=== PATIENT | male | born 1960 | race Caucasian/White ===

== ENCOUNTER 2018-02-25 09:55 | Day surgery (SDC) | payer OTHER ==
[2018-02-24 09:16] VITALS: BMI 32.0
[2018-02-25 10:53] VITALS: TEMP 98
[2018-02-25] MEDS ORDERED: LIDOCAINE 1% 20 ML VIAL (10MG/ML) FOR IV START INTRADERMA ONE (11:00)
[2018-02-25] MEDS ORDERED: LACTATED RINGERS 1,000 ML IV ONE (11:06)
[2018-02-25] MEDS ORDERED: PROPOFOL 10 MG/ML 20 ML VIAL IV ONE (11:31)
[2018-02-25 12:06] VITALS: RESP 16
--- NOTE | 2018-02-25 12:10 | P.PCN ---
Date of Procedure: 02/25/18 Procedure(s) Performed: Procedure: Colonoscopy and polypectomy. Preoperative diagnosis: Screening for neoplasia. Postoperative diagnosis: 1. Small splenic flexure polyp snared but no large polyps or cancer. 2. Sigmoid diverticulosis with no evidence of acute diverticulitis or strictures. Preparation: HalfLytely prep. Sedation: Was provided by anesthesia. Brief clinical history: The patient is a 57-year-old male who is scheduled for this evaluation for screening for neoplasia age being his risk factor. There is no family history of colon cancer. The patient has no abdominal complaints, bleeding or anemia. This would be his first colonoscopy. Procedure: With the patient on his left lateral decubitus position and after informed consent and adequate sedation, the perianal area was inspected and it did not show any fissures or fistulas. There were no masses felt on digital rectal examination. The Olympus CFH 190L video colonoscope was then inserted in the rectum in the usual fashion and advanced to the cecum. There was a small polyp around the splenic flexure which was snared and retrieved by suction but there were no large polyps or cancer. Several diverticular orifices were seen scattered in the sigmoid but there was no evidence of acute diverticulitis or strictures. I retroflexed the endoscope in the rectum before the endoscope was withdrawn. Low-grade internal hemorrhoids were noted with no evidence of bleeding. The patient tolerated the procedure well. Plan: The patient was reassured. Discussed dietary measures. He will follow up with you as planned and I recommended repeat exam in 5 years.
[2018-02-25 12:26] VITALS: BP 133/85; PULSE 71
== END 2018-02-25 12:55 | disposition home or self-care (01) ==
LOC: ORWHC2ENDO 09:55
DX: Z12.11 Encounter for screening for malignant neoplasm of colon (principal); K63.5 Polyp of colon; K57.30 Diverticulosis of large intestine without perforation or abscess without bleeding; K64.8 Other hemorrhoids; F17.210 Nicotine dependence, cigarettes, uncomplicated; E66.01 Morbid (severe) obesity due to excess calories; Z68.32 Body mass index [BMI] 32.0-32.9, adult
CPT/HCPCS: 45385; 88305

== ENCOUNTER 2018-05-05 09:11 | Emergency (ER) | payer OTHER ==
[2018-05-05 09:17] VITALS: BP 91/60; PULSE 69; RESP 18; TEMP 98.2
[2018-05-05] MEDS ORDERED: LIDOCAINE 1% INJ 10MG/ML (20 ML MDV) SQ ONE (09:28)
--- NOTE | 2018-05-05 09:30 | ED ---
Wound/Laceration HPI - General Chief Complaint: Wound/Laceration Stated Complaint: Laceraton hand Time Seen by Provider: 05/05/18 09:18 Source: patient, RN notes reviewed, old records reviewed Mode of arrival: ambulatory Limitations: no limitations - History of Present Illness Initial Comments: Patient is a 57-year-old male presents emergency department today with laceration over the proximal interphalangeal joint of the left index finger. Patient reports that he cut it on a razor blade at work. He states he has full range of motion of finger. His tetanus is up-to-date. Patient denies any recent fever, chills, shortness of breath, chest pain, back pain, abdominal pain , nausea vomiting, numbness or tingling, dysuria or hematuria, constipation or diarrhea, headaches or visual changes, or any other current symptoms - Related Data Home Medications Medication Instructions Recorded Confirmed No Known Home Medications 02/24/18 02/25/18 Allergies Allergy/AdvReac Type Severity Reaction Status Date / Time No Known Allergies Allergy Verified 05/05/18 09:28 Review of Systems ROS Statement: Those systems with pertinent positive or pertinent negative responses have been documented in the HPI. ROS Other: All systems not noted in ROS Statement are negative. Past Medical History Past Medical History: No Reported History History of Any Multi-Drug Resistant Organisms: None Reported Past Surgical History: Orthopedic Surgery Additional Past Surgical History / Comment(s): knee arthroscopy Past Anesthesia/Blood Transfusion Reactions: Previous Problems w/ Anesthesia Additional Past Anesthesia/Blood Transfusion Reaction / Comment(s): states "longer to wake up" Past Psychological History: No Psychological Hx Reported Smoking Status: Current every day smoker Past Alcohol Use History: Occasional Past Drug Use History: None Reported - Past Family History Father Family Medical History: Cancer Additional Family Medical History / Comment(s): prostate General Exam - General Exam Comments Initial Comments: This is a 57-year-old male. Alert and oriented 3. No significant distress. Limitations: no limitations General appearance: alert, in no apparent distress Head exam: Present: atraumatic, normocephalic, normal inspection Eye exam: Present: normal appearance, PERRL, EOMI. Absent: scleral icterus, conjunctival injection, periorbital swelling ENT exam: Present: normal exam, mucous membranes moist Neck exam: Present: normal inspection. Absent: tenderness, meningismus, lymphadenopathy Respiratory exam: Present: normal lung sounds bilaterally. Absent: respiratory distress, wheezes, rales, rhonchi, stridor Cardiovascular Exam: Present: regular rate, normal rhythm, normal heart sounds. Absent: systolic murmur, diastolic murmur, rubs, gallop, clicks GI/Abdominal exam: Present: soft, normal bowel sounds. Absent: distended, tenderness, guarding, rebound, rigid Extremities exam: Present: normal inspection, full ROM, normal capillary refill. Absent: tenderness, pedal edema, joint swelling, calf tenderness Left Elbow exam: Present: normal inspection, full ROM, abrasion Forearm Wrist exam: Present: full ROM Hand Wrist exam: Present: normal inspection, full ROM, laceration ( is a 2 cm laceration over the PIP of the left index finger. Laceration is linear.) Neuro motor exam: Present: wrist extension intact, thumb opposition intact Neurosensory exam: Present: 2-point discrimination Vascular: Present: normal capillary refill Back exam: Present: normal inspection Neurological exam: Present: alert, oriented X3, CN II-XII intact Psychiatric exam: Present: normal affect, normal mood Skin exam: Present: warm, dry, intact, normal color. Absent: rash Course Vital Signs 05/05/18 09:14 Temperature 98.2 F Pulse Rate 69 Respiratory 18 Rate Blood Pressure 91/60 O2 Sat by Pulse 98 Oximetry Procedures - Laceration Laceration #1 Size (cm): 2 Description: linear Depth: simple, single layer Anesthesia Technique: local infiltration Amount (mls): 2 Pre-repair: wound explored, irrigated extensively Type of Sutures: nylon Size of Sutures: 5-0 Number of Sutures: 2 Technique: simple, interrupted Patient Tolerated Procedure: well, no complications Medical Decision Making - Medical Decision Making Male presents return today with a laceration from a razor blade over the left PIP of the index finger. Patient is full range of motion of finger. No tendon involvement. His tetanus is up-to-date. Wound was thoroughly irrigated with soap and water. Laceration was closed with 2 stitches. Discussed suture care. Discussed monitoring for infection. Discussed close follow-up with primary care physician and return parameters were discussed. Disposition Clinical Impression: Finger laceration Disposition: HOME SELF-CARE Condition: Good Instructions (If sedation given, give patient instructions): Care For Your Stitches (ED) Additional Instructions: Please return to the emergency room in 8-10 days to have sutures removed. Please leave wound covered for the first 24-48 hours and then leave open to air after that time. Please use clean soap and water to clean the suture area to prevent scabbing over the top of your sutures. Please watch for any signs of infection which may include but not limited to increased pain, swelling, redness , fever or chills. Please return to the emergency room if any signs of infection do occur. Please return to the emergency room for any other concerns or complications. Is patient prescribed a controlled substance at d/c from ED?: No Referrals: Steven Zhang MD [Primary Care Provider] - 1-2 days Time of Disposition: 09:30
== END 2018-05-05 10:06 | disposition home or self-care (01) ==
LOC: EC 09:11
DX: S61.211A Laceration without foreign body of left index finger without damage to nail, initial encounter (principal); F17.200 Nicotine dependence, unspecified, uncomplicated; W26.8XXA Contact with other sharp object(s), not elsewhere classified, initial encounter; Y92.69 Other specified industrial and construction area as the place of occurrence of the external cause
CPT/HCPCS: 99283; 12001; J2001

== ENCOUNTER 2023-03-27 11:19 | Day surgery (SDC) | payer BC, OTHER ==
[2023-03-24 14:11] VITALS: BMI 32.2
[~2023-03-27 11:19] MED LIST: LIDOCAINE 1% (10MG/ML) FOR IV START INTRADERMA PRN
[2023-03-27] MEDS: LACTATED RINGERS 1,000 ML IV SCH ×2 (12:33→13:19)
[2023-03-27 12:40] VITALS: TEMP 97.6
[2023-03-27] MEDS ORDERED: PROPOFOL 10 MG/ML 20 ML VIAL IV ONE (13:21)
--- NOTE | 2023-03-27 13:37 | P.PCN ---
Date of Procedure: 03/27/23 Procedure(s) Performed: BRIEF HISTORY: Patient is a 62-year-old pleasant white male scheduled for an elective colonoscopy as a part of evaluation of prior history of colon polyps. Last colonoscopy was 5 years ago. PROCEDURE PERFORMED: Colonoscopy with biopsy PREOPERATIVE DIAGNOSIS: History of colon polyps. IV sedation per Anesthesia. PROCEDURE: After informed consent was obtained, the patient, was brought into the endoscopy unit. IV sedation was administered by Anesthesia under continuous monitoring. Digital rectal examination was normal. Initially the Olympus CF-160 flexible video colonoscope was then inserted in the rectum, gradually advanced into the cecum without any difficulty. Careful examination was performed as the scope was gradually being withdrawn. Ileocecal valve and the appendiceal orifice were visualized and appeared normal. Prep was excellent. Mucosa of the cecum, ascending colon, appeared normal. In the transverse colon there was a 5 mm polyp that was removed by cold biopsy. Rest of the transverse colon, descending colon, sigmoid colon, and rectum appeared normal. In the rectum there was a 3 mm polyp that was removed by cold biopsy. Scattered similar diverticulosis. Retroflexion was performed in the rectum and no lesions were seen. The patient tolerated the procedure well. IMPRESSION: 5 mm transverse colon polyp status post cold biopsy 3 mm rectal polyp status post cold biopsy Scattered sigmoid diverticulosis RECOMMENDATIONS: Findings of this examination were discussed with the paas well as his family. he was advised to follow up with the biopsy results. If the biopsy revealed adenoma he can have a repeat colonoscopy in 5 years.
[2023-03-27 14:00] VITALS: RESP 18
[2023-03-27 14:26] VITALS: BP 124/82; PULSE 79
== END 2023-03-27 14:12 | disposition home or self-care (01) ==
LOC: ORWHC2ENDO 11:19
PROVIDERS: ATTEND Internal Medicine Gastroenterology
DX: Z12.11 Encounter for screening for malignant neoplasm of colon (principal); D12.3 Benign neoplasm of transverse colon; K62.1 Rectal polyp; K57.30 Diverticulosis of large intestine without perforation or abscess without bleeding; F17.210 Nicotine dependence, cigarettes, uncomplicated; Z86.010 Personal history of colon polyps
CPT/HCPCS: 88305; 45380; J2704